=== PATIENT | female | born 1995 | race Caucasian/White ===

== ENCOUNTER 2019-07-02 00:03 | Emergency (ER) | payer MEDICAID ==
[~2019-07-02] VITALS: Ht 165.1 cm; Wt 91.0 kg
[2019-07-02] MEDS ORDERED: KETOROLAC 30MG/ML VIAL IM ONE (02:15)
[2019-07-02 02:54] VITALS: BP 135/60
== END 2019-07-02 02:56 | disposition home or self-care (01) ==
LOC: ER 00:03
DX: S20.219A Contusion of unspecified front wall of thorax, initial encounter (principal); S30.0XXA Contusion of lower back and pelvis, initial encounter; V89.2XXA Person injured in unspecified motor-vehicle accident, traffic, initial encounter; Y93.89 Activity, other specified; Y92.89 Other specified places as the place of occurrence of the external cause; Y99.8 Other external cause status
CPT/HCPCS: 71045; 81025; 96372; 99283; J1885

== ENCOUNTER 2019-07-06 16:52 | Emergency (ER) | payer MEDICAID ==
[~2019-07-06] VITALS: Ht 165.1 cm; Wt 90.0 kg
[2019-07-06] MEDS ORDERED: IBUPROFEN 600MG TABLET PO STA (19:04)
[2019-07-06 19:13] LABS: CLARITY URINE CLOUDY (CLEAR); COLOR URINE DARK YELLOW (YELLOW); KETONES URINE TRACE (NEGATIVE); LEUKOCYTE ESTERASE URINE NEGATIVE (NEGATIVE); NITRITE URINE NEGATIVE (NEGATIVE); OCCULT BLOOD URINE NEGATIVE (NEGATIVE); PROTEIN URINE 1+ (NEGATIVE); SPECIFIC GRAVITY URINE 1.037 (1.005-1.030)
[2019-07-06 21:25] VITALS: BP 120/70
== END 2019-07-06 21:25 | disposition home or self-care (01) ==
LOC: ER 16:52
DX: J10.1 Influenza due to other identified influenza virus with other respiratory manifestations (principal)
CPT/HCPCS: 71045; 81003; 81025; 87804; 99284